=== PATIENT | female | born 1960 | race Caucasian/White ===

== ENCOUNTER 2017-12-19 15:08 | Emergency (ER) | payer BC ==
[2017-12-19 15:22] VITALS: BP 131/75
[2017-12-19] MEDS ORDERED: Ketorolac 30 MG/ML SDV IVPUSH ONE (15:47)
[2017-12-19] MEDS ORDERED: Sodium Chloride 0.9% 1,000 ML IV ONE (15:47)
[2017-12-19] MEDS ORDERED: Ondansetron 4 MG/2 ML SDV IVPUSH ONE (15:47)
--- NOTE | 2017-12-19 16:27 | EDM.PDOC ---
ED HPI GENERAL MEDICAL PROBLEM - General Chief Complaint: Neurological Problem Stated Complaint: WEAKNESS/NAUSEA Time Seen by Provider: 12/19/17 15:35 Source of Information: Reports: Patient History Limitations: Reports: No Limitations - History of Present Illness INITIAL COMMENTS - FREE TEXT/NARRATIVE: 57-year-old female presents for evaluation and treatment of headache, nausea and weakness. Patient reports Wednesday night she started to feel weak. Reports heaviness and weakness in her legs. States that Wednesday she did not have much to eat in the morning. Had lunch around 1300. She then went up to her parents. She states that she was out with them when she developed headache. She was home by 2100. She did not have anything for dinner last night but she did drink some water. She states today she continues to have a headache and feel weak. She is reporting some tingling in the right fingertips but states this could also be due to carpal tunnel which she has been her right hand. Reports the headache is currently in the back of her head and rates the pain as a 3 out of 10. She reports no vision changes. She denies any chest pain, shortness of breath or syncope. She states that she is feeling weak, lightheaded, nauseated and did vomit. She vomited one time this morning. She has been taking Tylenol and Motrin. Last dose of Tylenol was around 06 100. Patient reports she's had headaches in the past. She denies any recent head trauma. She reports that she's been struggling with sinus issues and was recently on antibiotics for about 3 weeks. She has been off these for the last 2 weeks. She denies any fevers,abdominal pain or diarrhea. No urinary symptoms including no dysuria. She is a past medical history of asthma, sinus issues and high blood pressure. Reports she had her blood pressure medications and maintain feels is improving. Primary care provider is Dr. Caceres. Treatments DIRECTOR EMERGENCY: Reports: Other (see below) Other Treatments DIRECTOR EMERGENCY: tylenol at 0600 Headache Pain Score (Numeric/FACES): 3 - Related Data Allergies Allergy/AdvReac Type Severity Reaction Status Date / Time Iodine and Iodide Containing Allergy Rash Verified 03/13/16 05:21 Produc Home Meds: Home Meds Albuterol [Proair HFA] 2 puff INH Q4H PRN 03/13/16 [History] Cyanocobalamin (Vitamin B12) [Vitamin B12] 1 tab PO DAILY 03/13/16 [History] Fluticasone Propionate 1 spray NASBOTH DAILY 03/13/16 [History] Fluticasone Propionate [Flovent HFA 44 MCG] 2 puff INH DAILY PRN 03/13/16 [ History] Lisinopril 10 mg PO DAILY 03/13/16 [History] Omeprazole 20 mg PO DAILY 03/13/16 [History] Hydrochlorathiazi 25 mg PO DAILY 12/19/17 [History] LORazepam [Ativan] 0.5 mg PO ASDIRECTED 12/19/17 [History] Past Medical History HEENT History: Reports: Sinusitis, Other (See Below) Cardiovascular History: Reports: Hypertension Respiratory History: Reports: Asthma Gastrointestinal History: Reports: GERD Genitourinary History: Reports: UTI, Recurrent Psychiatric History: Reports: Anxiety - Past Surgical History HEENT Surgical History: Reports: Other (See Below) Other HEENT Surgeries/Procedures: polyps removed from nose GI Surgical History: Reports: Colonoscopy Female Surgical History: Reports: Section Social & Family History - Family History Family Medical History: Noncontributory - Tobacco Use Smoking Status *Q: Never Smoker - Caffeine Use Caffeine Use: Reports: Coffee - Recreational Drug Use Recreational Drug Use: No ED ROS GENERAL - Review of Systems Review Of Systems: See Below Constitutional: Reports: Malaise, Weakness. Denies: Fever HEENT: Denies: Ear Pain, Throat Pain Respiratory: Denies: Shortness of Breath Cardiovascular: Reports: Lightheadedness. Denies: Chest Pain, Syncope GI/Abdominal: Reports: Nausea, Vomiting (x1). Denies: Abdominal Pain, Diarrhea : Reports: No Symptoms. Denies: Dysuria Neurological: Reports: Headache, Tingling (right hand finger tips 3-5). Denies : Numbness, Syncope ED EXAM, NEURO - Physical Exam Exam: See Below Exam Limited By: No Limitations General Appearance: Alert, WD/WN, No Apparent Distress Eye Exam: Bilateral Eye: Normal Inspection Ears: Normal External Exam Nose: Normal Inspection Throat/Mouth: Normal Inspection, Normal Lips, Normal Voice, No Airway Compromise Neck: Normal Inspection Respiratory/Chest: No Respiratory Distress, Lungs Clear, Normal Breath Sounds Cardiovascular: Normal Peripheral Pulses, Regular Rate, Rhythm, No Murmur GI/Abdominal: Soft, Non-Tender Neurological: Alert, Normal Mood/Affect Psychiatric: Normal Affect, Normal Mood Skin Exam: Warm, Dry, Normal Color EKG INTERPRETATION EKG Date: 12/19/17 Time: 16:15 Rhythm: NSR Rate (Beats/Min): 83 [place]: Normal P-Wave: Present QRS: Normal ST-T: Normal QT: Normal EKG Interpretation Comments: NSR at 83 bpm. Q waves V1 - normal variant. Otherwise normal EKG. Reviewed by myself and Dr. Horowitz. Course - Vital Signs Last Recorded V/S: Last Vital Signs Temp 98.5 F 12/19/17 15:21 Pulse 84 12/19/17 15:21 Resp 20 12/19/17 15:21 BP 131/75 12/19/17 15:21 Pulse Ox 100 12/19/17 15:21 - Orders/Labs/Meds Labs: Laboratory Tests 12/19/17 12/19/17 Range/Units 15:55 15:55 WBC 8.51 (3.98-10.04) K/mm3 RBC 4.71 (3.98-5.22) M/mm3 Hgb 13.9 (11.2-15.7) gm/L Hct 40.2 (34.1-44.9) % MCV 85.4 (79.4-94.8) fl MCH 29.5 (25.6-32.2) pg MCHC 34.6 (32.2-35.5) g/dl RDW Std Deviation 39.5 (36.4-46.3) fL Plt Count 323 (182-369) K/mm3 MPV 9.4 (9.4-12.3) fl Neutrophils % (Manual) 68 H (40-60) % Band Neutrophils % 0 (0-10) % Lymphocytes % (Manual) 24 (20-40) % Atypical Lymphs % 0 % Monocytes % (Manual) 4 (2-10) % Eosinophils % (Manual) 3 (0.7-5.8) % Basophils % (Manual) 1 (0.1-1.2) Platelet Estimate Adequate Plt Morphology Comment Normal RBC Morph Comment Normal Sodium 137 (136-145) mEq/L Potassium 3.5 (3.5-5.1) mEq/L Chloride 101 (98-107) mEq/L Carbon Dioxide 24 (21-32) mEq/L Anion Gap 15.5 H (5-15) BUN 12 (7-18) mg/dL Creatinine 0.9 (0.55-1.02) mg/dL Est Cr Clr Drug Dosing 55.20 mL/min Estimated GFR (MDRD) > 60 (>60) mL/min BUN/Creatinine Ratio 13.3 L (14-18) Glucose 92 (74-106) mg/dL Calcium 9.5 (8.5-10.1) mg/dL Magnesium 2.1 (1.8-2.4) mg/dl Total Bilirubin 0.4 (0.2-1.0) mg/dL AST 27 (15-37) U/L ALT 33 (14-59) U/L Alkaline Phosphatase 101 (46-116) U/L Total Protein 7.9 (6.4-8.2) g/dl Albumin 4.2 (3.4-5.0) g/dl Globulin 3.7 gm/dL Albumin/Globulin Ratio 1.1 (1-2) TSH 3rd Generation 2.238 (0.358-3.74) uIU/mL Meds: Medications Discontinued Medications Generic Name Dose Route Start Last Admin Trade Name Freq PRN Reason Stop Dose Admin Sodium Chloride 1,000 mls @ 999 mls/hr 12/19/17 15:47 12/19/17 15:54 Normal Saline IV 12/19/17 16:47 999 mls/hr ONETIME ONE Administration Ketorolac Tromethamine 30 mg 12/19/17 15:47 12/19/17 15:54 Toradol IVPUSH 12/19/17 15:48 30 mg ONETIME ONE Administration Ondansetron HCl 4 mg 12/19/17 15:47 12/19/17 15:54 Zofran IVPUSH 12/19/17 15:48 4 mg ONETIME ONE Administration - Re-Assessments/Exams Free Text/Narrative Re-Assessment/Exam: 12/19/17 18:17 I have reviewed the labs and ekg with the patient. She is feeling improved. Only thing remarkable is mild dehydration. Will have her rest, drink plenty of fluids and follow-up in the clinic. Discharge instructions as documented. Departure - Departure Time of Disposition: 18:19 Disposition: Home, Self-Care 01 Condition: Fair Clinical Impression: Dehydration, mild - Discharge Information *PRESCRIPTION DRUG MONITORING PROGRAM REVIEWED*: No *COPY OF PRESCRIPTION DRUG MONITORING REPORT IN PATIENT LEVAR: No Instructions: Dehydration, Adult, [id number] Referrals: Lenin Hayes MD [Primary Care Provider] - Forms: ED Department Discharge Additional Instructions: make sure you're drinking plenty of fluids. Rest. follow-up with your primary care provider this week. Please return to the ER if your symptoms change or worsen.
== END 2017-12-19 18:40 | disposition home or self-care (01) ==
LOC: JD.ED 15:08
DX: E86.0 Dehydration (principal); I10 Essential (primary) hypertension; Z88.8 Allergy status to other drugs, medicaments and biological substances; Z79.899 Other long term (current) drug therapy
CPT/HCPCS: 36415; 80053; 83735; 84443; 85007; 85027; 93005; 96361; 96374; 96375; 99284; J1885; J2405; J7040; 93010

== ENCOUNTER 2020-03-06 18:59 | Emergency (ER) | payer BC ==
[2020-03-06] MEDS ORDERED: Sodium Chloride 0.9% 10 ML Syringe FLUSH PRN (19:43)
[2020-03-06] MEDS ORDERED: Alum Hydrox/Mag Hydrox/Simeth 30 ML, Lidocaine 2% 15 ML PO ONE ×2 (19:44)
[2020-03-06 20:24] VITALS: BP 119/65; PULSE 80
[2020-03-06] MEDS ORDERED: Famotidine 20 MG/2 ML SDV IVPUSH ONE (20:40)
--- NOTE | 2020-03-06 20:44 | EDM.PDOC ---
ED HPI GENERAL MEDICAL PROBLEM - General Chief Complaint: Gastrointestinal Problem Stated Complaint: BURNING PAIN FROM CHEST INTO THROAT AREA Time Seen by Provider: 03/06/20 19:42 Source of Information: Reports: Patient, RN Notes Reviewed History Limitations: Reports: No Limitations - History of Present Illness INITIAL COMMENTS - FREE TEXT/NARRATIVE: Patient is a 59-year-old female who presents to the ED for the evaluation of her heartburn. The patient notes she has been having increase in her heartburn and epigastric pain for about a week. She states this is a burning sensation that is in her chest and radiates up her throat. She also notes a very sour taste in the mouth. She states she does take omeprazole, and was feeling good while taking this, and try to taper herself off of this, and that is when her symptoms become worse again. She notes that she has been taking her omeprazole as directed, she took it yesterday in the morning, and at night, took it again this morning for management. She tried Tums, and 1 dose of Pepcid today, and nothing seems to really be helping much. She is not having any active chest pain per se, or any shortness of breath, any nausea/vomiting/diarrhea. She notes she did have an EGD 5 years ago, and everything seemed to be within normal limits. Patient denies any other sick-like symptoms, fever/chills, cough/shortness of breath, nausea/vomiting/diarrhea. Her primary care provider is Dr. Caceres. Epigastric Pain Score (Numeric/FACES): 5 - Related Data Allergies Allergy/AdvReac Type Severity Reaction Status Date / Time Iodine and Iodide Containing Allergy Rash Verified 03/13/16 05:21 Produc Home Meds: Home Meds Albuterol [Proair HFA] 2 puff INH Q4H PRN 03/13/16 [History] Cyanocobalamin (Vitamin B12) [Vitamin B12] 1 tab PO DAILY 03/13/16 [History] Fluticasone Propionate [Flovent HFA 44 MCG] 2 puff INH DAILY PRN 03/13/16 [History] Lisinopril 10 mg PO DAILY 03/13/16 [History] Omeprazole 20 mg PO DAILY 03/13/16 [History] Hydrochlorathiazi 25 mg PO DAILY 12/19/17 [History] LORazepam [Ativan] 0.5 mg PO ASDIRECTED 12/19/17 [History] Past Medical History HEENT History: Reports: Sinusitis, Other (See Below) Cardiovascular History: Reports: Hypertension Respiratory History: Reports: Asthma Gastrointestinal History: Reports: GERD Genitourinary History: Reports: UTI, Recurrent Psychiatric History: Reports: Anxiety - Past Surgical History HEENT Surgical History: Reports: Other (See Below) Other HEENT Surgeries/Procedures: polyps removed from nose GI Surgical History: Reports: Colonoscopy Female Surgical History: Reports: Section Social & Family History - Family History Family Medical History: Noncontributory - Tobacco Use Tobacco Use Status *Q: Never Tobacco User - Caffeine Use Caffeine Use: Reports: None - Recreational Drug Use Recreational Drug Use: No ED ROS GENERAL - Review of Systems Review Of Systems: Comprehensive ROS is negative, except as noted in HPI. ED EXAM, GI/ABD - Physical Exam Exam: See Below Exam Limited By: No Limitations General Appearance: Alert, WD/WN, No Apparent Distress Respiratory/Chest: No Respiratory Distress, Lungs Clear, Normal Breath Sounds, No Accessory Muscle Use, Chest Non-Tender Cardiovascular: Normal Peripheral Pulses, Regular Rate, Rhythm, No Edema, No Murmur GI/Abdominal Exam: Normal Bowel Sounds, Soft, No Distention, No Mass, Tender (mild over epigastrium) Extremities: Normal Inspection, Normal Capillary Refill Neurological: Alert, Oriented, Normal Cognition, No Motor/Sensory Deficits Psychiatric: Normal Affect, Normal Mood Skin Exam: Warm, Dry, Intact, Normal Color, No Rash #1 Interpretation EKG Date: 03/06/20 Time: 19:57 Rhythm: Other (sinus arrthymia) Rate (Beats/Min): 76 [place]: Normal P-Wave: Present QRS: Normal ST-T: Normal QT: Normal EKG Interpretation Comments: No obvious ischemia or acute ST changes noted, reviewed by myself and Dr. Asif. Course - Vital Signs Last Recorded V/S: Last Vital Signs Temp 97.5 F 03/06/20 19:10 Pulse 80 03/06/20 20:23 Resp 16 03/06/20 20:23 BP 119/65 03/06/20 20:23 Pulse Ox 100 03/06/20 20:23 - Orders/Labs/Meds Orders: Active Orders 24 hr Category Date Time Status EKG Documentation Completion [RC] STAT Care 03/06/20 19:43 Ordered Peripheral IV Care [RC] . DIRECTED Care 03/06/20 19:43 Ordered Chest 2V [CR] Stat Exams 03/06/20 19:43 Ordered Sodium Chloride 0.9% [Saline Flush] Med 03/06/20 19:43 Ordered 10 ml FLUSH ASDIRECTED PRN Peripheral IV Insertion Adult [OM.PC] Stat Oth 03/06/20 19:43 Ordered Medication Orders Sodium Chloride (Saline Flush) 10 ml FLUSH ASDIRECTED PRN PRN Reason: Keep Vein Open Last Admin: 03/06/20 20:29 Dose: 10 ml Documented by: JUANI Labs: Laboratory Tests 03/06/20 03/06/20 03/06/20 Range/Units 20:29 20:29 20:29 WBC 9.47 (3.98-10.04) K/mm3 RBC 4.58 (3.98-5.22) M/mm3 Hgb 13.7 (11.2-15.7) gm/dl Hct 40.5 (34.1-44.9) % MCV 88.4 D (79.4-94.8) fl MCH 29.9 (25.6-32.2) pg MCHC 33.8 (32.2-35.5) g/dl RDW Std Deviation 41.1 (36.4-46.3) fL Plt Count 298 (182-369) K/mm3 MPV 9.3 L (9.4-12.3) fl Neut % (Auto) 74.3 H (34.0-71.1) % Lymph % (Auto) 16.3 L (19.3-51.7) % [place] % (Auto) 7.7 (4.7-12.5) % Eos % (Auto) 1.3 (0.7-5.8) Baso % (Auto) 0.3 (0.1-1.2) % Neut # (Auto) 7.04 H (1.56-6.13) K/mm3 Lymph # (Auto) 1.54 (1.18-3.74) K/mm3 [place] # (Auto) 0.73 H (0.24-0.36) K/mm3 Eos # (Auto) 0.12 (0.04-0.36) K/mm3 Baso # (Auto) 0.03 (0.01-0.08) K/mm3 PT 11.3 (9.7-11.7) SECONDS INR 1.06 APTT 26 (22-31) SECONDS Sodium 133 L (136-145) mEq/L Potassium 3.2 L (3.5-5.1) mEq/L Chloride 94 L (98-107) mEq/L Carbon Dioxide 29 (21-32) mEq/L Anion Gap 13.2 (5-15) BUN 11 (7-18) mg/dL Creatinine 0.9 (0.55-1.02) mg/dL Est Cr Clr Drug Dosing 53.67 mL/min Estimated GFR (MDRD) > 60 (>60) mL/min BUN/Creatinine Ratio 12.2 L (14-18) Glucose 92 (74-106) mg/dL Calcium 9.9 (8.5-10.1) mg/dL Magnesium 2.0 (1.8-2.4) mg/dl Total Bilirubin 0.6 (0.2-1.0) mg/dL AST 24 (15-37) U/L ALT 40 (14-59) U/L Alkaline Phosphatase 99 (46-116) U/L Troponin I < 0.017 (0.00-0.056) ng/mL NT-Pro-B Natriuret Pep (0-125) pg/mL Total Protein 8.0 (6.4-8.2) g/dl Albumin 4.5 (3.4-5.0) g/dl Globulin 3.5 gm/dL Albumin/Globulin Ratio 1.3 (1-2) 03/06/20 Range/Units 20:29 WBC (3.98-10.04) K/mm3 RBC (3.98-5.22) M/mm3 Hgb (11.2-15.7) gm/dl Hct (34.1-44.9) % MCV (79.4-94.8) fl MCH (25.6-32.2) pg MCHC (32.2-35.5) g/dl RDW Std Deviation (36.4-46.3) fL Plt Count (182-369) K/mm3 MPV (9.4-12.3) fl Neut % (Auto) (34.0-71.1) % Lymph % (Auto) (19.3-51.7) % [place] % (Auto) (4.7-12.5) % Eos % (Auto) (0.7-5.8) Baso % (Auto) (0.1-1.2) % Neut # (Auto) (1.56-6.13) K/mm3 Lymph # (Auto) (1.18-3.74) K/mm3 [place] # (Auto) (0.24-0.36) K/mm3 Eos # (Auto) (0.04-0.36) K/mm3 Baso # (Auto) (0.01-0.08) K/mm3 PT (9.7-11.7) SECONDS INR APTT (22-31) SECONDS Sodium (136-145) mEq/L Potassium (3.5-5.1) mEq/L Chloride (98-107) mEq/L Carbon Dioxide (21-32) mEq/L Anion Gap (5-15) BUN (7-18) mg/dL Creatinine (0.55-1.02) mg/dL Est Cr Clr Drug Dosing mL/min Estimated GFR (MDRD) (>60) mL/min BUN/Creatinine Ratio (14-18) Glucose (74-106) mg/dL Calcium (8.5-10.1) mg/dL Magnesium (1.8-2.4) mg/dl Total Bilirubin (0.2-1.0) mg/dL AST (15-37) U/L ALT (14-59) U/L Alkaline Phosphatase (46-116) U/L Troponin I (0.00-0.056) ng/mL NT-Pro-B Natriuret Pep 46 (0-125) pg/mL Total Protein (6.4-8.2) g/dl Albumin (3.4-5.0) g/dl Globulin gm/dL Albumin/Globulin Ratio (1-2) Meds: Medications Generic Name Dose Route Start Last Admin Trade Name Freq PRN Reason Stop Dose Admin Sodium Chloride 10 ml 03/06/20 19:43 03/06/20 20:29 Saline Flush FLUSH 10 ml ASDIRECTED PRN Administration Keep Vein Open Discontinued Medications Generic Name Dose Route Start Last Admin Trade Name Freq PRN Reason Stop Dose Admin Al Hydroxide/Mg Hydroxide 30 0 ml 03/06/20 19:44 03/06/20 20:22 ml/ Lidocaine HCl 15 ml PO 03/06/20 19:45 45 ml ONETIME ONE Administration Famotidine 20 mg 03/06/20 20:40 03/06/20 20:54 Pepcid IVPUSH 03/06/20 20:41 20 mg ONETIME ONE Administration - Re-Assessments/Exams Free Text/Narrative Re-Assessment/Exam: 03/06/20 20:43 Patient presents to the ED for her heartburn. EKG, chest x-ray will be obtained along with baseline labs for further evaluation of cardiac etiology, patient was given a GI cocktail, and she does state that this has seemed to help most of her symptoms. 03/06/20 21:14 The patient's EKG, chest x-ray and labs are all fairly unremarkable, potassium is mildly low, but appears to be nutritional. Patient be discharged home with general recommendations. Departure - Departure Time of Disposition: 21:15 Disposition: Home, Self-Care 01 Condition: Good Clinical Impression: Heartburn - Discharge Information *PRESCRIPTION DRUG MONITORING PROGRAM REVIEWED*: No *COPY OF PRESCRIPTION DRUG MONITORING REPORT IN PATIENT LEVAR: No Instructions: Indigestion, [id number] Referrals: Lenin Hayes MD [Primary Care Provider] - Forms: ED Department Discharge Additional Instructions: You were evaluated in the ER today for your heartburn-like symptoms. EKG, chest x-ray, and other labs were done to rule out any sort of cardiac etiology that may be causing these symptoms. All of this was unremarkable, you are not suffering from a heart attack or anything like this at tonight's visit. You did get a GI cocktail while in the ER, this seemed to help relieve most your symptoms. I highly recommend you take your Prilosec 2 times a day for the next week or so, and then taper back to once a day. You may also use Pepcid, which is [id number], for further acid relief in your stomach. Please follow-up with your primary care provider for further evaluation. Please return to the ER at any time if your symptoms change or worsen. Sepsis Event Note (ED) - Evaluation Sepsis Screening Result: No Definite Risk - Focused Exam Vital Signs: Vital Signs Temp Pulse Resp BP Pulse Ox 03/06/20 20:23 80 16 119/65 100 03/06/20 19:10 97.5 F 86 20 149/82 H 100 - My Orders Last 24 Hours: My Active Orders 03/06/20 19:43 EKG Documentation Completion [RC] STAT Peripheral IV Care [RC] . DIRECTED Chest 2V [CR] Stat Sodium Chloride 0.9% [Saline Flush] 10 ml FLUSH ASDIRECTED PRN Peripheral IV Insertion Adult [OM.PC] Stat - Assessment/Plan Last 24 Hours: My Active Orders 03/06/20 19:43 EKG Documentation Completion [RC] STAT Peripheral IV Care [RC] . DIRECTED Chest 2V [CR] Stat Sodium Chloride 0.9% [Saline Flush] 10 ml FLUSH ASDIRECTED PRN Peripheral IV Insertion Adult [OM.PC] Stat
== END 2020-03-06 21:30 | disposition home or self-care (01) ==
LOC: JD.ED 18:59
DX: R12 Heartburn (principal); I10 Essential (primary) hypertension; J45.909 Unspecified asthma, uncomplicated; K21.9 Gastro-esophageal reflux disease without esophagitis; Z79.899 Other long term (current) drug therapy; Z91.048 Other nonmedicinal substance allergy status
CPT/HCPCS: 36415; 71046; 80053; 83735; 83880; 84484; 85025; 85610; 85730; 93005; 96374; 99284; A9270; J3490; 93010; 99283

== ENCOUNTER 2020-06-08 07:41 | Emergency (ER) | payer BC ==
[2020-06-08 07:56] VITALS: PULSE 76
--- NOTE | 2020-06-08 09:16 | EDM.PDOC ---
ED HPI GENERAL MEDICAL PROBLEM - General Chief Complaint: Syncope Stated Complaint: LEG CRAMP /SYNCOPE Time Seen by Provider: 06/08/20 07:52 Source of Information: Reports: Patient, Family History Limitations: Reports: No Limitations - History of Present Illness INITIAL COMMENTS - FREE TEXT/NARRATIVE: The patient presents with a syncopal episode. On Wednesday she stopped taking her amitryptyline she was taking for headaches. This was done under supervision of her doctor Dr Caceres. She was going to switch to citalopram. She started having some tingling in her arms and legs. She spoke with Dr Caceres and he had her start taking the citalopram on . Last night she had a severe cramp in her leg and got up and had some pickle juice. She was going back to bed and had a syncopal episode where she ended up on the floor but she did not go all the way out. She did not hit her head. She has been having a headache for a few days. She also feels a little dizzy. She has no fever, chills, cough, congestion, chest pain, shortness of breath, abdominal pain or vomiting. She said she may have had an "upset" stomach a few days ago. She has a history of hypertension and migraines but no other serious problems. Onset: Gradual Duration: Day(s): Location: Reports: Head Quality: Reports: Ache Severity: Mild Improves with: Reports: None Worsens with: Reports: None Associated Symptoms: Reports: Headaches, Syncope. Denies: Chest Pain, Cough, Fever/Chills, Nausea/Vomiting, Shortness of Breath Headache Pain Score (Numeric/FACES): 2 - Related Data Allergies Allergy/AdvReac Type Severity Reaction Status Date / Time Iodine and Iodide Containing Allergy Rash Verified 06/08/20 07:56 Produc Home Meds: Home Meds Albuterol [Proair HFA] 2 puff INH Q4H PRN 03/13/16 [History] Cyanocobalamin (Vitamin B12) [Vitamin B12] 1,000 mcg PO DAILY 03/13/16 [History] Fluticasone Propionate [Flovent HFA 44 MCG] 2 puff INH DAILY PRN 03/13/16 [History] Lisinopril 10 mg PO BID 03/13/16 [History] Omeprazole 20 mg PO DAILY 03/13/16 [History] LORazepam [Ativan] 0.5 mg PO Q6H PRN 12/19/17 [History] Estriol 0.5 gm MC WEEKLY 04/25/20 [History] hydroCHLOROthiazide [Hydrochlorothiazide] 25 mg PO DAILY 04/25/20 [History] Citalopram Hydrobromide [Celexa] 10 mg PO DAILY 06/08/20 [History] Past Medical History HEENT History: Reports: Sinusitis Cardiovascular History: Reports: Hypertension Respiratory History: Reports: Asthma Gastrointestinal History: Reports: GERD Genitourinary History: Reports: UTI, 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: Psychiatric History: Reports: Anxiety - Past Surgical History HEENT Surgical History: Reports: Other (See Below) Other HEENT Surgeries/Procedures: polyps removed from nose GI Surgical History: Reports: Colonoscopy Female Surgical History: Reports: Section Social & Family History - Family History Family Medical History: No Pertinent Family History - Tobacco Use Tobacco Use Status *Q: Never Tobacco User Second Hand Smoke Exposure: No - Caffeine Use Caffeine Use: Reports: None - Recreational Drug Use Recreational Drug Use: No ED ROS GENERAL - Review of Systems Review Of Systems: See Below Constitutional: Reports: No Symptoms HEENT: Reports: No Symptoms Respiratory: Reports: No Symptoms Cardiovascular: Reports: Syncope. Denies: Chest Pain, Lightheadedness Endocrine: Reports: No Symptoms GI/Abdominal: Reports: No Symptoms : Reports: No Symptoms Neurological: Reports: Dizziness, Syncope, Tingling (arms and legs) - Physical Exam Exam: See Below Exam Limited By: No Limitations General Appearance: Alert, No Apparent Distress Ears: Normal External Exam Nose: Normal Inspection Head Exam: Atraumatic, Normocephalic Neck: Normal Inspection, Supple, Non-Tender Respiratory/Chest: No Respiratory Distress, Lungs Clear, Normal Breath Sounds Cardiovascular: Regular Rate, Rhythm, No Edema, No Murmur GI/Abdominal: Soft, Non-Tender, No Organomegaly, No Mass Neuro Exam (Abbreviated): Alert, Oriented, No Motor/Sensory Deficits Extremities: Normal Inspection #1 Interpretation EKG Date: 06/08/20 Time: 08:17 Rhythm: NSR Rate (Beats/Min): 69 [place]: Normal P-Wave: Present QRS: Normal ST-T: Normal QT: Normal Course - Vital Signs Last Recorded V/S: Last Vital Signs Temp 97.3 F 06/08/20 07:53 Pulse 76 06/08/20 07:53 Resp 17 06/08/20 07:53 BP 149/70 H 06/08/20 07:53 Pulse Ox 100 06/08/20 07:53 - Orders/Labs/Meds Orders: Active Orders 24 hr Category Date Time Status Cardiac Monitoring [RC] . DIRECTED Care 06/08/20 08:12 Active EKG Documentation Completion [RC] STAT Care 06/08/20 08:12 Active Labs: Laboratory Tests 06/08/20 06/08/20 06/08/20 Range/Units 08:32 08:32 08:32 WBC 10.67 H (3.98-10.04) K/mm3 RBC 4.65 (3.98-5.22) M/mm3 Hgb 14.0 (11.2-15.7) gm/dl Hct 40.9 (34.1-44.9) % MCV 88.0 (79.4-94.8) fl MCH 30.1 (25.6-32.2) pg MCHC 34.2 (32.2-35.5) g/dl RDW Std Deviation 38.8 (36.4-46.3) fL Plt Count 344 (182-369) K/mm3 MPV 9.0 L (9.4-12.3) fl Neut % (Auto) 82.9 H (34.0-71.1) % Lymph % (Auto) 11.0 L (19.3-51.7) % [place] % (Auto) 5.0 (4.7-12.5) % Eos % (Auto) 0.8 (0.7-5.8) Baso % (Auto) 0.1 (0.1-1.2) % Neut # (Auto) 8.85 H (1.56-6.13) K/mm3 Lymph # (Auto) 1.17 L (1.18-3.74) K/mm3 [place] # (Auto) 0.53 H (0.24-0.36) K/mm3 Eos # (Auto) 0.09 (0.04-0.36) K/mm3 Baso # (Auto) 0.01 (0.01-0.08) K/mm3 D-Dimer, Quantitative 0.41 (0.19-0.50) mg/L Sodium 134 L (136-145) mEq/L Potassium 3.7 (3.5-5.1) mEq/L Chloride 95 L (98-107) mEq/L Carbon Dioxide 27 (21-32) mEq/L Anion Gap 15.7 H (5-15) BUN 13 (7-18) mg/dL Creatinine 0.8 (0.55-1.02) mg/dL Est Cr Clr Drug Dosing 59.89 mL/min Estimated GFR (MDRD) > 60 (>60) mL/min BUN/Creatinine Ratio 16.3 (14-18) Glucose 113 H (74-106) mg/dL Calcium 9.5 (8.5-10.1) mg/dL Magnesium 2.2 (1.8-2.4) mg/dl Total Bilirubin 0.5 (0.2-1.0) mg/dL AST 23 (15-37) U/L ALT 37 (14-59) U/L Alkaline Phosphatase 94 (46-116) U/L Troponin I < 0.017 (0.00-0.056) ng/mL Total Protein 7.4 (6.4-8.2) g/dl Albumin 4.1 (3.4-5.0) g/dl Globulin 3.3 gm/dL Albumin/Globulin Ratio 1.2 (1-2) - Re-Assessments/Exams Free Text/Narrative Re-Assessment/Exam: 06/08/20 09:18 I ordered an EKG and labs. Her EKG shows a NSR with no acute changes. 06/08/20 09:50 Her WBC was elevated slightly at 10.67. Her D-dimer was negative. Her Na was a little low at 134. Her anion gap was elevated at 15.7. Her troponin is negative. Her magnesium is normal. I feel this is all related to coming off of the amytriptiline. I will have continue the citalopram. Departure - Departure Time of Disposition: 09:55 Disposition: Home, Self-Care 01 Condition: Good Clinical Impression: Syncope Qualifiers: Syncope type: unspecified Qualified Code(s): R55 - Syncope and collapse Medication adverse effect Qualifiers: Encounter type: initial encounter Qualified Code(s): T50.905A - Adverse effect of unspecified drugs, medicaments and biological substances, initial encounter - Discharge Information Referrals: Lenin Hayes MD [Primary Care Provider] - 1 Week Forms: ED Department Discharge Additional Instructions: Keep taking your medications as prescribed including the citalopram. Drink pl enty of fluids. Follow up with Dr aCceres. Please return if you are worse. Sepsis Event Note (ED) - Evaluation Sepsis Screening Result: No Definite Risk - Focused Exam Vital Signs: Vital Signs Temp Pulse Resp BP Pulse Ox 06/08/20 07:53 97.3 F 76 17 149/70 H 100 - My Orders Last 24 Hours: My Active Orders 06/08/20 08:12 Cardiac Monitoring [RC] . DIRECTED EKG Documentation Completion [RC] STAT - Assessment/Plan Last 24 Hours: My Active Orders 06/08/20 08:12 Cardiac Monitoring [RC] . DIRECTED EKG Documentation Completion [RC] STAT
[2020-06-08 10:07] VITALS: BP 130/65
== END 2020-06-08 10:05 | disposition home or self-care (01) ==
LOC: JD.ED 07:41
DX: R55 Syncope and collapse (principal); I10 Essential (primary) hypertension; J45.909 Unspecified asthma, uncomplicated; K21.9 Gastro-esophageal reflux disease without esophagitis; Z79.899 Other long term (current) drug therapy; Z91.048 Other nonmedicinal substance allergy status; T43.225A Adverse effect of selective serotonin reuptake inhibitors, initial encounter
CPT/HCPCS: 36415; 80053; 83735; 84484; 85025; 85379; 93005; 93010; 99283; 99284-25

== ENCOUNTER 2020-12-23 21:24 | Emergency (ER) | payer BC ==
[2020-12-23 21:41] VITALS: BP 153/74; PULSE 75
[2020-12-23] MEDS ORDERED: Sodium Chloride 0.9% 10 ML Syringe FLUSH PRN (22:11)
[2020-12-23] MEDS ORDERED: cefTRIAXone 1 GM in Sodium Chloride 0.9% 100 ML IV ONE (22:11)
--- NOTE | 2020-12-23 22:47 | EDM.PDOC ---
ED HPI GENERAL MEDICAL PROBLEM - General Chief Complaint: Genitourinary Problem Stated Complaint: UTI (NOT GETTING BETTER) Time Seen by Provider: 12/23/20 21:43 Source of Information: Reports: Patient, RN Notes Reviewed - History of Present Illness INITIAL COMMENTS - FREE TEXT/NARRATIVE: 60 yr old female with onset of voiding dysuria, frequency, urgency 8 to 10 hrs ago, than developed mild hematuria this afternoon. Was started on keflex 500 bid after visit to walk in clinic this afternoon. Feels that sx are worse this evening. Chills but no fever, mild R low back ache. Lower Abdomen Pain Score (Numeric/FACES): 9 - Related Data Allergies Allergy/AdvReac Type Severity Reaction Status Date / Time Iodine and Iodide Containing Allergy Rash Verified 12/23/20 21:38 Produc Home Meds: Home Meds Albuterol [Proair HFA] 2 puff INH Q4H PRN 03/13/16 [History] Cyanocobalamin (Vitamin B12) [Vitamin B12] 1,000 mcg PO DAILY 03/13/16 [History] Fluticasone Propionate [Flovent HFA 44 MCG] 2 puff INH DAILY PRN 03/13/16 [History] Lisinopril 10 mg PO BID 03/13/16 [History] Omeprazole 20 mg PO DAILY 03/13/16 [History] LORazepam [Ativan] 0.5 mg PO Q6H PRN 12/19/17 [History] Estriol 0.5 gm MC WEEKLY 04/25/20 [History] hydroCHLOROthiazide [Hydrochlorothiazide] 25 mg PO DAILY 04/25/20 [History] Citalopram Hydrobromide [Celexa] 10 mg PO DAILY 06/08/20 [History] Past Medical History HEENT History: Reports: Sinusitis Cardiovascular History: Reports: Hypertension Respiratory History: Reports: Asthma Gastrointestinal History: Reports: GERD Genitourinary History: Reports: UTI, 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: Psychiatric History: Reports: Anxiety - Past Surgical History HEENT Surgical History: Reports: Other (See Below) Other HEENT Surgeries/Procedures: polyps removed from nose GI Surgical History: Reports: Colonoscopy Female Surgical History: Reports: Section Social & Family History - Family History Family Medical History: No Pertinent Family History - Tobacco Use Tobacco Use Status *Q: Never Tobacco User Second Hand Smoke Exposure: No - Caffeine Use Caffeine Use: Reports: None - Recreational Drug Use Recreational Drug Use: No ED ROS GENERAL - Review of Systems Review Of Systems: See Below Constitutional: Reports: Chills. Denies: Fever HEENT: Reports: No Symptoms Respiratory: Reports: No Symptoms Cardiovascular: Reports: No Symptoms GI/Abdominal: Denies: Abdominal Pain, Nausea, Vomiting : Reports: Dysuria, Frequency, Urgency Musculoskeletal: Reports: Back Pain Skin: Denies: Rash Neurological: Reports: No Symptoms ED EXAM, RENAL/ - Physical Exam Exam: See Below General Appearance: Alert, Anxious (mild) Head: Atraumatic Neck: Supple Respiratory/Chest: No Respiratory Distress Cardiovascular: Regular Rate, Rhythm Back Exam: Other (very mild R low back tenderness). No: CVA Tenderness (L), CVA Tenderness (R) Extremities: Normal Inspection Neurological: Alert, No Motor/Sensory Deficits Course - Vital Signs Last Recorded V/S: Last Vital Signs Temp 97.8 F 12/23/20 21:34 Pulse 75 12/23/20 21:40 Resp 16 12/23/20 21:40 BP 153/74 H 12/23/20 21:40 Pulse Ox 100 12/23/20 21:40 - Orders/Labs/Meds Orders: Active Orders 24 hr Category Date Time Status Peripheral IV Insertion Adult [OM.PC] Stat Oth 12/23/20 22:11 Ordered Meds: Medications Discontinued Medications Generic Name Dose Route Start Last Admin Trade Name Freq PRN Reason Stop Dose Admin Ceftriaxone Sodium 1 gm/ 100 mls @ 200 mls/hr 12/23/20 22:11 12/23/20 22:27 Sodium Chloride IV 12/23/20 22:40 200 mls/hr ONETIME ONE Administration Sodium Chloride 10 ml 12/23/20 22:11 12/23/20 22:30 Sodium Chloride 0.9% 10 Ml Syringe FLUSH 10 ml ASDIRECTED PRN Administration Keep Vein Open - Re-Assessments/Exams Free Text/Narrative Re-Assessment/Exam: 12/23/20 22:45 Ua and urine culture done at clinic 4 to 5 hrs ago. I do not see any benefit of repeating that. Will give her a dose of rocephin IV. Discharge instr. as documented. Departure - Departure Time of Disposition: 10:55 Disposition: Home, Self-Care 01 Condition: Fair Clinical Impression: UTI, Urinary tract infectious disease - Discharge Information Instructions: Urinary Tract Infection, Adult, [id number] Referrals: Lenin Hayes MD [Primary Care Provider] - Forms: ED Department Discharge Additional Instructions: You have been given 1 gram rocephin IV while here in the ED. Continue the keflex tomorrow but take 500 mg 3 times daily tomorrow and Weds and than back to twice daily until gone. Drink plenty of water to maintain hydration. Follow up clinic as needed. Return to ED as needed if symptoms worsening in any way. Sepsis Event Note (ED) - Evaluation Sepsis Screening Result: No Definite Risk - Focused Exam Vital Signs: Vital Signs Temp Pulse Resp BP Pulse Ox 12/23/20 21:40 75 16 153/74 H 100 12/23/20 21:34 97.8 F 88 16 100 - My Orders Last 24 Hours: My Active Orders 12/23/20 22:11 Peripheral IV Insertion Adult [OM.PC] Stat - Assessment/Plan Last 24 Hours: My Active Orders 12/23/20 22:11 Peripheral IV Insertion Adult [OM.PC] Stat
== END 2020-12-23 23:30 | disposition home or self-care (01) ==
LOC: JD.ED 21:24
DX: N39.0 Urinary tract infection, site not specified (principal); K21.9 Gastro-esophageal reflux disease without esophagitis; I10 Essential (primary) hypertension; Z91.041 Radiographic dye allergy status; Z79.899 Other long term (current) drug therapy
CPT/HCPCS: 96365; 99283; J0696

== ENCOUNTER 2021-01-19 03:26 | Emergency (ER) | payer BC ==
[2021-01-19 03:40] VITALS: BP 157/61; PULSE 69
[2021-01-19] MEDS ORDERED: Nitrofurantoin Monohydrate/Macrocrystalline 100 MG Cap PO STA (04:24)
--- NOTE | 2021-01-19 04:31 | EDM.PDOC ---
ED HPI GENERAL MEDICAL PROBLEM - General Chief Complaint: Genitourinary Problem Stated Complaint: POSSIBLE UTI Time Seen by Provider: 01/19/21 04:12 Source of Information: Reports: Patient, Family () History Limitations: Reports: No Limitations - History of Present Illness INITIAL COMMENTS - FREE TEXT/NARRATIVE: Mrs. David is a very pleasant 60-year-old woman who now presents the ED stating that she developed dysuria last night before she went to bed. She then woke up around 02 30 this morning with continued dysuria and gross hematuria. She took 2 tablets of Azo before coming to the ED. No recent fever. She denies having abdominal or flank pain. The patient has had similar symptoms in the past, due to cystitis. Here in the ED, the patient's initial BP is found to be mildly elevated at 157/61, otherwise, she is hemodynamically stable, afebrile, saturating 98% on room air. Prior to last night, the patient denies having a recent fever, chills, sore throat, ear pain, nasal or sinus congestion, cough, dyspnea, chest pain, palpitations, nausea, vomiting, constipation, diarrhea, abdominal pain, urinary symptoms, recent weight gain or weight loss, recent bloody bowel movements or black bowel movements, recent joint aches, headaches, or rashes. The patient's PCP is Dr. Lenin Hayes. Her woman's health provider is Saray Marx NP. She has received 2 COVID vaccinations. Bladder Pain Score (Numeric/FACES): 4 - Related Data Allergies Allergy/AdvReac Type Severity Reaction Status Date / Time Iodine and Iodide Containing Allergy Rash Verified 01/19/21 03:40 Produc Home Meds: Home Meds Albuterol [Proair HFA] 2 puff INH Q4H PRN 03/13/16 [History] Cyanocobalamin (Vitamin B12) [Vitamin B12] 1,000 mcg PO DAILY 03/13/16 [History] Fluticasone Propionate [Flovent HFA 44 MCG] 2 puff INH DAILY PRN 03/13/16 [History] Lisinopril 10 mg PO BID 03/13/16 [History] Omeprazole 20 mg PO DAILY 03/13/16 [History] LORazepam [Ativan] 0.5 mg PO Q6H PRN 08/05/18 [History] Estriol 0.5 gm MC WEEKLY 04/25/20 [History] hydroCHLOROthiazide [Hydrochlorothiazide] 25 mg PO DAILY 04/25/20 [History] Citalopram Hydrobromide [Celexa] 10 mg PO DAILY 06/08/20 [History] nitrofurantoin macrocrystaL [Nitrofurantoin] 1 cap PO Q12H #10 capsule 01/19/21 [Rx] Past Medical History Cardiovascular History: Reports: Hypertension Respiratory History: Reports: Asthma (suspected, not tested) Gastrointestinal History: Reports: GERD Genitourinary History: Reports: Urinary Incontinence (stress incontinence) Psychiatric History: Reports: Anxiety - Past Surgical History HEENT Surgical History: Reports: Naso-Sinus Surgery (nasal polypectomy), Oral Surgery (dental extractions) GI Surgical History: Reports: Colonoscopy Female Surgical History: Reports: Section (x 1) Social & Family History - Tobacco Use Tobacco Use Status *Q: Never Tobacco User Second Hand Smoke Exposure: No - Caffeine Use Caffeine Use: Reports: None - Alcohol Use Alcohol Use History: Yes Alcohol Use Frequency: Rarely - Recreational Drug Use Recreational Drug Use: No - Living Situation & Occupation Living situation: Reports: , with Spouse 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 ED EXAM, RENAL/ - Physical Exam Exam: See Below Exam Limited By: No Limitations General Appearance: Alert, WD/WN, No Apparent Distress Eye Exam: Bilateral Eye: EOMI, Normal Inspection Ears: Normal External Exam, Hearing Grossly Normal Nose: Normal Inspection Throat/Mouth: Normal Inspection, Normal Lips, Normal Voice, No Airway Compromise Head: Atraumatic, Normocephalic Neck: Normal Inspection, Full Range of Motion Respiratory/Chest: No Respiratory Distress, Lungs Clear, Normal Breath Sounds, No Accessory Muscle Use Cardiovascular: Normal Peripheral Pulses, Regular Rate, Rhythm, No Edema, No Gallop, No JVD, No Murmur, No Rub GI/Abdominal: Normal Bowel Sounds, Soft, Non-Tender (including suprapubically), No Organomegaly, No Distention, No Abnormal Bruit, No Mass Back Exam: Normal Inspection, Full Range of Motion. No: CVA Tenderness (L), CVA Tenderness (R) Extremities: Normal Inspection, Normal Range of Motion, No Pedal Edema, Normal Capillary Refill Neurological: Alert, Oriented, Normal Cognition, No Motor/Sensory Deficits Psychiatric: Normal Affect Skin Exam: Warm, Dry, Intact, Normal Color, No Rash Course - Vital Signs Last Recorded V/S: Last Vital Signs Temp 36.6 C 01/19/21 03:37 Pulse 69 01/19/21 03:37 Resp 18 01/19/21 03:37 BP 157/61 H 01/19/21 03:37 Pulse Ox 98 01/19/21 03:37 - Orders/Labs/Meds Orders: Active Orders 24 hr Category Date Time Status CULTURE URINE [MREF] Stat Lab 01/19/21 03:45 Received Nitrofurantoin [place]/Macrocryst [Macrobid] Med 01/19/21 04:24 Stat 100 mg PO ONETIME STA Labs: Laboratory Tests 01/19/21 Range/Units 03:45 Urine Color Red H (Yellow) Urine Appearance Turbid H (Clear) Urine pH 6.5 (5.0-8.0) Ur Specific [place] 1.015 (1.005-1.030) Urine Protein 3+ H (Negative) Urine Glucose (UA) Trace H (Negative) Urine Ketones 1+ H (Negative) Urine Occult Blood 3+ H (Negative) Urine Nitrite Positive H (Negative) Urine Bilirubin 2+ H (Negative) Urine Urobilinogen 2.0 H (0.2-1.0) Ur Leukocyte Esterase 3+ H (Negative) Urine RBC Too numerous to cnt H (0-5) /hpf Urine WBC 10-20 H (0-5) /hpf Ur Squamous Epith Cells 0-5 (0-5) /hpf Urine Bacteria Few (FEW) /hpf Urine Mucus Not seen (FEW) /hpf - Re-Assessments/Exams Free Text/Narrative Re-Assessment/Exam: 01/19/21 04:25 A urinalysis was ordered at triage. It is remarkable for 3+ occult blood with TNTC RBCs, 3+ leukocyte esterase with 10-20 WBCs, nitrite positive with few bacteria, and 0-5 squamous epithelial cells. A urine culture was subsequently ordered at triage. Based on the above, I will start the patient on nitrofurantoin, and submit a prescription for the patient to complete a 5-day course. She may also take a total of 6 doses of OTC Azo. She should stay adequately hydrated. I would like her to follow-up with Dr. Caceres on Wednesday, to check on her urine culture results. Departure - Departure Time of Disposition: 04:26 Disposition: Home, Self-Care 01 Condition: Good Clinical Impression: Cystitis - Discharge Information *PRESCRIPTION DRUG MONITORING PROGRAM REVIEWED*: Not Applicable *COPY OF PRESCRIPTION DRUG MONITORING REPORT IN PATIENT LEVAR: Not Applicable Referrals: Lenin Hayes MD [Primary Care Provider] - Saray Marx PHOTOGRAPH MOUNTER [Nurse Practitioner] - Additional Instructions: You were seen in the emergency room after developing painful urination last night, then seeing bloody urine this morning. Work-up in the ER included a urinalysis, which confirmed that you have a urinary tract infection. A sample of your urine has been sent for culture. You have been started on the antibiotic nitrofurantoin, and prescription for nitrofurantoin has been sent to the [facility], located just south and across the [address] from [facility]. The pharmacy will be open between noon and 4 PM today. Take 1 tablet of nitrofurantoin every 12 hours, starting these afternoon/evening, 01/19/2021, as prescribed. Finish the entire prescription unless told otherwise by your doctor. In addition to nitrofurantoin, you may also take [id number] Azo, for a total of 6 doses, bearing in mind that you have already taken 1 dose. Azo will turn your urine orange, which is normal. Stay adequately hydrated. It does not really matter what type of fluid you drink. We recommend that you follow-up with your PCP, Dr. Lenin Hayes, this coming 01/22/2021, to check on your urine culture results, to make sure that you are on the correct antibiotic. If any other problems, please do not hesitate to return to the ER. Sepsis Event Note (ED) - Evaluation Sepsis Screening Result: No Definite Risk - Focused Exam Vital Signs: Vital Signs Temp Pulse Resp BP Pulse Ox 01/19/21 03:37 36.6 C 69 18 157/61 H 98 - My Orders Last 24 Hours: My Active Orders 01/19/21 03:45 CULTURE URINE [MREF] Stat 01/19/21 04:24 Nitrofurantoin [place]/Macrocryst [Macrobid] 100 mg PO ONETIME STA - Assessment/Plan Last 24 Hours: My Active Orders 01/19/21 03:45 CULTURE URINE [MREF] Stat 01/19/21 04:24 Nitrofurantoin [place]/Macrocryst [Macrobid] 100 mg PO ONETIME STA
== END 2021-01-19 04:43 | disposition home or self-care (01) ==
LOC: JD.ED 03:26
DX: N30.90 Cystitis, unspecified without hematuria (principal); I10 Essential (primary) hypertension; K21.9 Gastro-esophageal reflux disease without esophagitis; Z91.041 Radiographic dye allergy status; Z79.899 Other long term (current) drug therapy
CPT/HCPCS: 81001; 87086; 99283; A9270

== ENCOUNTER 2023-12-03 00:15 | Emergency (ER) | payer BC ==
[2023-12-03] MEDS ORDERED: cefTRIAXone 1 GM Vial ONE (00:49)
[2023-12-03] MEDS ORDERED: Lidocaine 1% 2 ML ONE (00:49)
[2023-12-27 15:36] LABS: APPEARANCE,URINE CLOUDY (Clear); COLOR,URINE RED (Yellow)
[2023-12-27 15:37] LABS: BILIRUBIN,URINE NEGATIVE (Negative); GLUCOSE,URINE NEGATIVE (Negative); KETONES,URINE NEGATIVE (Negative); NITRITE,URINE POSITIVE (Negative); OCCULT BLOOD,URINE 3+ (Negative); PROTEIN,URINE 2+ (Negative); UROBILINOGEN,URINE 0.2 (0.2-1.0)
[2023-12-27 15:39] LABS: BACTERIA,URINE FEW /hpf (FEW); EPITHELIAL CELLS,URINE 0-5 /hpf (0-5); LEUKOCYTE ESTERASE,URINE 2+ (Negative); MUCUS,URINE FEW /hpf (FEW); RBC,URINE TOO NUMEROUS TO CNT /hpf (0-5)
== END 2023-12-03 01:15 | disposition home or self-care (01) ==
LOC: JD.ED 00:15
DX: N39.0 Urinary tract infection, site not specified (principal); I10 Essential (primary) hypertension; J45.909 Unspecified asthma, uncomplicated; K21.9 Gastro-esophageal reflux disease without esophagitis; Z79.899 Other long term (current) drug therapy; Z88.8 Allergy status to other drugs, medicaments and biological substances
CPT/HCPCS: 81001; 96372; 99283